=== PATIENT | female | born 1985 | race Caucasian/White ===

== ENCOUNTER 2025-09-20 21:31 | Emergency (ER) | payer OTHER ==
[2025-09-20] MEDS ORDERED: Naproxen 500 MG TAB ONE (22:20)
[2025-09-20 22:25] LABS: Anion Gap 18 mmol/L (10-20); BUN (Urea Nitrogen) 12 mg/dL (7.0-18.7); Calc. Creatinine Clearance 0 mL/min (70-130); Calcium 9.5 mg/dL (7.8-10.44); Carbon Dioxide 29 mmol/L (22-29); Chloride 98 mmol/L (98-107); Glucose 103 mg/dL (70-105); Potassium 3.1 mmol/L (3.5-5.1); Sodium 142 mmol/L (136-145)
[2025-09-20 22:26] LABS: Hematocrit 35.2 % (36.0-47.0); Hemoglobin 13.3 g/dL (12.0-16.0); MDiff Complete? YES; Mean Corpuscular Hemoglobin 32.1 pg (27.0-31.0); Mean Corpuscular Volume 84.8 fl (78.0-98.0); Platelet Count 282 10x3/uL (130-400); Red Blood Cell (RBC) Count 4.15 mill/uL (4.20-5.40); White Blood Cell (WBC) Count 9.9 10x3/uL (4.8-10.8)
[2025-09-20 22:27] LABS: Platelet Adequacy Comment Appears Adequate
[2025-09-20 22:39] LABS: Glucose, Urine (Dipstick) Negative (Negative); Leukocyte Small (Negative); Protein, Urine (Dipstick) > or equal to 300 mg/dL (Neg-Trace); Specific Gravity, Urine 1.010 (1.005-1.030)
[2025-09-20 22:47] LABS: CAUTI Indications for Culture Urological Procedure; RBC/HPF 0-3 HPF (0-3); WBC/HPF 0-3 HPF (0-3)
[2025-09-20 22:48] LABS: Bacteria/HPF 1+ HPF (None Seen)
[2025-09-20 22:56] LABS: Urine Culture Reflex Yes Yes
== END 2025-09-20 23:40 ==
LOC: BURERS 21:31
DX: G89.4 Chronic pain syndrome (principal); E87.6 Hypokalemia; L89.899 Pressure ulcer of other site, unspecified stage; F17.210 Nicotine dependence, cigarettes, uncomplicated
CPT/HCPCS: 36415; 80048; 81001; 85025; 87077; 87086; 99284

== ENCOUNTER 2025-11-14 20:15 | Emergency (ER) | payer OTHER ==
[2025-11-14] MEDS ORDERED: Sulfameth/Trimethoprim DS 800-160mg TAB ONE (20:59)
[2025-11-14] MEDS ORDERED: HYDROcodone/Acetaminophen 5/325 mg Tablet ONE (21:09)
[2025-11-14 21:22] LABS: Glucose, Urine (Dipstick) Negative (Negative); Leukocyte Large (Negative); Protein, Urine (Dipstick) > or equal to 300 mg/dL (Neg-Trace); Specific Gravity, Urine 1.020 (1.005-1.030)
[2025-11-14 21:27] LABS: Bacteria/HPF 1+ HPF (None Seen); CAUTI Indications for Culture Spinal Cord Injury
[2025-11-14 21:29] LABS: Urine Culture Reflex No No
== END 2025-11-14 21:36 ==
LOC: BURERS 20:15
DX: Z46.6 Encounter for fitting and adjustment of urinary device (principal); N39.0 Urinary tract infection, site not specified; E03.9 Hypothyroidism, unspecified; E66.01 Morbid (severe) obesity due to excess calories; K21.9 Gastro-esophageal reflux disease without esophagitis; F17.210 Nicotine dependence, cigarettes, uncomplicated; Z79.899 Other long term (current) drug therapy; Z79.890 Hormone replacement therapy
CPT/HCPCS: 51705; 81001; 99283